=== PATIENT | female | born 1995 | race Caucasian/White ===

== ENCOUNTER 2019-05-06 09:21 | Outpatient (CLI) | payer OTHER, SELFPAY ==
--- NOTE | ~2019-05-06 | US_ITS ---
EXAMINATION: US right upper quadrant EXAM DATE: 05/06/2019 10:03 INDICATION: Right upper quadrant pain, nausea, symptoms 3 years. TECHNIQUE: Multiple grayscale and Doppler images of the abdomen right upper quadrant were obtained (b y a technologist who performed the scan) and subsequently reviewed. Comparison is made to prior exami nation from 09/16/2015. FINDINGS: The pancreatic head and body are normal in appearance. The pancreatic tail is not visualized. The l iver has normal echogenicity and contour. There are no focal liver lesions identified. There is no evidence of intrahepatic biliary duct dilation. Portal venous flow was seen in the hepatopedal, nor mal direction and has normal Doppler waveform. No right-sided hydronephrosis. Common bile duct measures 3 mm, which is normal. The gallbladder wall is normal in thickness, with ex pected amount of distention. No sonographic evidence of pericholecystic fluid. There is no cholelit hiases. Technologist performing exam reports patient did not demonstrate sonographic Franklin's sign. Please note that this sign is less reliable in patients who have received pain medication. IMPRESSION: 1. Unremarkable abdominal ultrasound exam. Reviewed, dictated and finalized at location B.
== END 2019-05-06 09:22 | disposition home or self-care (01) ==
LOC: ANHIMG 09:26
PROVIDERS: PCP Family Medicine; Visit Provider Internal Medicine Gastroenterology
DX: R10.11 Right upper quadrant pain (principal)
CPT/HCPCS: 76705

== ENCOUNTER 2019-10-09 07:37 | Outpatient (CLI) | payer OTHER, SELFPAY ==
--- NOTE | ~2019-10-09 | NM_ITS ---
EXAMINATION: NM hepatobiliary w pharm DATE: 10/09/2019 10:02 INDICATION: Right upper quadrant abdominal pain and nausea COMPARISON: None. TECHNIQUE: 4.9 mCi Tc-99m mebrofenin (Choletec) was administered intravenously. Scintigraphic images of the abdomen were obtained for one hour. 1.6 mcg sincalide (Kinevac) was administered by slow intr avenous infusion, and imaging was continued for 30 minutes. Gallbladder ejection fraction was calcula flaquito by the technologist. FINDINGS: There is normal clearance of radiotracer from the blood pool. There is homogeneous tracer uptake by t he liver. Activity progresses to the gallbladder and bowel. The gallbladder ejection fraction (GBEF) is 81% (normal 10-90%, but most patient with gallbladder dysfunction have GBEF < 35% which does over lap with the normal range). IMPRESSION: 1. Normal hepatobiliary scan. Reviewed, dictated and finalized at location A.
== END 2019-10-09 07:38 | disposition home or self-care (01) ==
PROVIDERS: PCP Family Medicine; Visit Provider Internal Medicine Gastroenterology
DX: R10.11 Right upper quadrant pain (principal); R11.0 Nausea
CPT/HCPCS: 78227; A9537; J2805

== ENCOUNTER 2020-01-26 10:49 | Outpatient (NON) | payer OTHER, SELFPAY ==
[2020-01-27 13:30] LABS: SARS-CoV-2 RNA PCR Positive
== END 2020-01-26 10:50 ==
PROVIDERS: PCP Family Medicine; Visit Provider Family Medicine
DX: U07.1 COVID-19 (principal)
CPT/HCPCS: 87635; C9803; U0003

== ENCOUNTER 2023-07-30 15:45 | Emergency (ER) | payer OTHER, SELFPAY ==
--- NOTE | ~2023-07-30 | CT_ITS ---
EXAMINATION: CT abdomen pelvis w con DATE: 07/30/2023 17:11 INDICATION: epigastric pain TECHNIQUE: Computed tomography (CT) of the abdomen and pelvis was performed with 100 mL Omnipaque-350 intravenous contrast. Automated exposure control and iterative reconstruction technique were employe d. The dose-length product was 493.11 mGy-cm. COMPARISON: Hepatobiliary scan 10/09/2019; right upper quadrant ultrasound 05/06/2019. FINDINGS: Lower thorax: Unremarkable Liver: Normal. Biliary/Gallbladder: Gallbladder is normal. No bile duct dilation. Pancreas: No mass or duct dilation. Spleen: Normal. Adrenals:No mass. Kidneys: No suspicious mass, obstructing stone, or hydronephrosis. GI tract: No small or large bowel dilation. Segmental small bowel wall edema involving the distal ile um with small volume adjacent interloop fluid and stranding of the adjacent mesentery. Normal appendi x. Mesentery/Peritoneum: No ascites, mass, or free air. Retroperitoneum: No mass. Pelvis: Normal partially distended urinary bladder. Normal uterus. 1.3 cm left ovarian cyst or domina nt follicle. 3.5 cm simple right ovarian cyst, which requires no additional evaluation. Soft Tissues: Soft tissues and body wall unremarkable. Bones: No acute osseous finding. IMPRESSION: Terminal ileitis. Reviewed, dictated and finalized at location K. IMPRESSION: Terminal ileitis.
[2023-07-30 15:46] VITALS: BP 120/84; PULSE 82; RESP 15; TEMP 36.8; O2SAT 99
[2023-07-30] MEDS: ONDANSETRON INJ 4 MG/2 ML VIAL IV PUSH (16:11)
[2023-07-30] MEDS: SODIUM CHLORIDE 0.9% IV 1,000 ML 999 ML IV CONT (16:11)
[2023-07-30] MEDS: FAMOTIDINE 20 MG/2 ML VIAL IV PUSH (16:11)
[2023-07-30 16:19] LABS: Basophils Percent Auto 0.3 % (0.2-1.2); Eosinophils Absolute Auto 0.1 K/mm3 (0-0.3); Hematocrit 41.9 % (37.0-47.0); Immature Granulocyte Absolute 0.05 K/mm3 (0.00-0.031); Immature Granulocyte Percent A 0.5 % (0-0.5); Mean Corpuscular HGB Conc 33.4 g/dl (32-36); Mean Corpuscular Volume 86.7 fl (80-100); Mean Platelet Volume 8.7 fl (7.4-10.4); Monocytes Percent Auto 9.8 % (2.6-8.5); Neutrophils Absolute Auto 7.1 K/mm3 (1.3-6.7); Neutrophils Percent Auto 67.4 % (45.5-73.1); Platelet Count Result 358 k/mm3 (150-375); Red Blood Count 4.83 M/mm3 (4.2-5.4); Red Cell Distribution Width 12.2 % (11.5-14.5); White Blood Count 10.5 K/mm3 (4.5-10.0)
[2023-07-30 16:28] LABS: Alanine Aminotransferase 28 U/L (6-35); Albumin Level 4.7 g/dL (3.5-5.1); Alkaline Phosphatase 84 U/L (38-126); Anion Gap 8 mmol/L (4-12); Aspartate Amino Transferase 24 U/L (14-36); Bilirubin,Total 0.7 mg/dL (0.2-1.3); Blood Urea Nitrogen 10 mg/dL (7-17); Carbon Dioxide 24 mmol/L (22-30); Chloride 104 mmol/L (98-107); Estimated CRCL calculation 138 ml/min; Estimated Glomerular Filt Rate > 60; Glucose 97 mg/dL (65-110); Lipase 58 U/L (23-300); Potassium 4.1 mmol/L (3.4-5.0); Sodium 136 mmol/L (137-145)
[2023-07-30 17:19] LABS: Appearance Urine Cloudy (Clear); Bacteria Urine 3+ /hpf; Bilirubin Urine Negative (Negative); Blood Urine Negative (Negative); Color Urine Yellow (Yellow); Glucose Urine UA Negative (Negative); Ketones Urine Trace mg/dL (Negative); Leukocyte Esterase Ur 2+ LEU/UL (Negative); Need Manual Microscopic Reviewed; Nitrate Urine Negative (Negative); Non Pathogenic Casts 0-2; Protein Urine Negative (Negative); Squamous Epithelial Cell Urine Occasional /hpf (Few); Urobilinogen Urine 0.2 mg/dL (<2.0); WBC Urine 21-50 /hpf (0-3); pH Urine 5.5 (5.0-9.0)
[2023-07-30 17:26] LABS: Add Urine Microscopic? YES
--- NOTE | 2023-07-30 17:56 | ED.ABDPAIN ---
HPI - Abdominal Pain General Chief Complaint: Abdominal Pain Stated Complaint: abdominal pain Time Seen by Provider: 07/30/23 15:55 Source: patient Mode of arrival: ambulatory Limitations: no limitations History of Present Illness HPI narrative: 28-year-old otherwise healthy here with the complaints of sudden onset of upper abdominal pain that started the middle of the night. Patient states that she had severe pain and was unable to sleep all night long. She denies having any fever or chills no history of nausea, vomiting or diarrhea. states her starts in the epigastric area and radiates to the lower abd . No gallbladder disease. . MD elicited complaint: abdominal pain Pertinent past history: none Onset (ago): hour(s) (8) Pain Consistency: intermittent Location: epigastric Severity: moderate Quality: aching Radiation: suprapubic Exacerbating factors: nothing Relieving factors: nothing Associated symptoms: denies other symptoms Related Data Home Medications Medication Instructions Recorded Confirmed etonogestrel 68 mg subdermal 1 implant subdermal ONCE 12/28/22 12/28/22 implant (Nexplanon) Allergies Allergy/AdvReac Type Severity Reaction Status Date / Time oxycodone AdvReac Hives Verified 07/30/23 15:50 Review of Systems Review of Systems: All systems reviewed & are unremarkable except as noted in HPI and below Constitutional: Constitutional: Reports no additional constitutional complaints Eyes: Eyes: Reports no additional eye complaints ENT: Reports system reviewed and no additional complaints, except as documented Cardiovascular: Cardiovascular: Reports no additional cardiovascular complaints Respiratory: Respiratory: Reports no additional respiratory complaints Gastrointestinal: Gastrointestinal: Reports as per HPI Neurologic: Reports system reviewed and no additional complaints, except as documented Psychiatric: Psychiatric: Reports no additional psychiatric complaints [facility] Social History Social History Smoking status: Never smoker Alcohol intake: current Alcohol use details: social Substance use: current Substance use type: marijuana Exam Narrative: GENERAL: Well-appearing, well-nourished, and in no acute distress. HEAD: Normocephalic, atraumatic. EYES: PERRLA and EOMI. ENT: Nares clear, no rhinorrhea or epistaxis. Mucous membranes moist. NECK: Supple. CHEST: Clear to auscultation. No respiratory distress. HEART: Regular rate and rhythm. No murmur heard. Normal peripheral pulses. ABDOMEN: Soft, nontender, nondistended, normal active bowel sounds. EXTREMITIES: Normal range of motion. No edema. SKIN: Warm, dry, no rash. NEURO: No focal deficits. Alert and oriented x3. PSYCH: Normal mood and affect. Course Course Emergency Course: I did notify the patient about her lab work, CT findings. Advised her to take Bentyl as prescribed. Follow-up with the GI Vital Signs Vital signs: Vital Signs Temperature 36.8 C 07/30/23 15:46 Pulse Rate 82 07/30/23 15:46 Respiratory Rate 15 07/30/23 15:46 Blood Pressure 120/84 07/30/23 15:46 Pulse Oximetry 99 07/30/23 15:46 Oxygen Delivery Room Air 07/30/23 15:46 Temperature 36.8 C 07/30/23 15:46 Pulse Rate 82 07/30/23 15:46 Respiratory Rate 15 07/30/23 15:46 Blood Pressure 120/84 07/30/23 15:46 Pulse Oximetry 99 07/30/23 15:46 Oxygen Delivery Room Air 07/30/23 15:46 MDM - Abdominal Pain Medical Records Attestation: I reviewed the patient's medical records. Lab Data Attestation: I reviewed the patient's lab results. 07/30/23 16:10 07/30/23 16:10 Labs: Lab Results 07/30/23 07/30/23 Range/Units 16:10 16:57 WBC 10.5 H (4.5-10.0) K/mm3 RBC 4.83 (4.2-5.4) M/mm3 Hgb 14.0 (12.0-15.0) g/dL Hct 41.9 (37.0-47.0) % MCV 86.7 (80-100) fl MCH 29.0 (26-34) pg MCHC 33.4
[2023-07-30 18:20] VITALS: BP 113/76; PULSE 70; RESP 18; O2SAT 99
== END 2023-07-30 18:22 | disposition home or self-care (01) ==
PROVIDERS: Emergency Provider Family Medicine; PCP Family Medicine
DX: R10.13 Epigastric pain (principal); K50.00 Crohn's disease of small intestine without complications
CPT/HCPCS: 36415; 74177; 80053; 81001; 81025; 83690; 85025; 87086; 87088; 96361; 96374; 96375; 99284; J2405; J7030; Q9967